=== PATIENT | female | born 1990 | race Caucasian/White ===

== ENCOUNTER 2016-12-03 01:22 | Emergency (ER) | payer OTHER ==
[~2016-12-03] VITALS: Ht 162.6 cm; Wt 55.0 kg
[2016-12-03 01:27] VITALS: Ht 162.6 cm; Wt 55.0 kg
--- NOTE | 2016-12-03 02:46 | ERD ---
ER Documentation Chief Complaint Date/Time DATE: 12/03/16 TIME: 02:42 Chief Complaint bilateral ear pain x 2 days HPI 26-year-old female presents in emergency department for complaints of bilateral ear pain for 2 days, patient feeling clogged on both ears, patient states that she has problems with cerumen. Patient's complaining of pain, throbbing pain, 4/ 10 scale, is accompanied with muffled hearing. Patient denies any trauma there. Patient denies any ear discharge. Patient denies any fever or chills. ROS All systems reviewed and are negative except as per history of present illness. Medications Home Meds Reported Medications [none] Unknown Strength No Conflict Check 12/03/16 Allergies Allergies: Coded Allergies: No Known Allergy (Unverified , 12/03/16) PMhx/Soc Medical and Surgical Hx: pt denies Medical Hx, pt denies Surgical Hx FmHx Family History: No coronary disease, No diabetes, No other Physical Exam Vitals Vital Signs Date Time Temp Pulse Resp B/P Pulse Ox O2 Delivery O2 Flow Rate FiO2 12/03/16 01:27 97.7 84 20 150/90 100 Physical Exam GENERAL: The patient is well developed and appropriate for usual state of health, in no apparent distress. HEENT: Atraumatic. Ears: Bilateral ear canals clogged with cerumen. Normal tympanic membrane, no erythema or bulging. No ear canal swelling. No ear discharge. Nose: normal nasal turbinates, no erythema or swelling. Normal nasal discharge. Throat: oropharynx clear. No tonsillar swelling or tonsillar exudates. No lymphadenopathy. CHEST: Clear to auscultation bilaterally. There are no rales, wheezes or rhonchi. HEART: Regular rate and rhythm. No murmurs, clicks, rubs or gallops. No S3 or S4. ABDOMEN: Soft, nontender and nondistended. Good bowel sounds. No rebound or guarding. No gross peritonitis. No gross organomegaly or masses. No Gutiérrez sign or McBurney point tenderness. BACK: No midline or flank tenderness. EXTREMITIES: Equal pulses bilaterally. There is no peripheral clubbing, cyanosis or edema. No focal swelling or erythema. Full range of motion. Grossly neurovascularly intact. NEURO: Alert and oriented. Cranial nerves 2-12 intact. Motor strength in all 4 extremities with 5/5 strength. Sensation grossly intact. Normal speech and gait. SKIN: There is no apparent rash or petechia. The skin is warm and dry. HEMATOLOGIC AND LYMPHATIC: There is no evidence of excessive bruising or lymphedema. No gross cervical, axillary, or inguinal lymphadenopathy. Results 24 hrs Procedure note: After patient's verbal consent, bilateral ears were lavaged, afterwards, the tympanic membrane was visualized, and symptoms of any otitis media. No foreign body noted in the ear. Procedures/MDM Medical decision making: Patient's symptoms most likely is consistent with bilateral cerumen impaction. No infection noted at this time. Patient will be given Corticosporin otic drops to prevent infection of both ears since patient had an ear lavage done. Patient does not have any symptoms of any foreign body in the ear, nose tympanic membrane perforation noted. No symptoms of otitis media, otitis externa or mastoiditis. Patient appears well and is hemodynamically stable. Patient was advised to avoid using Q-tips to clean the ear. Patient was also given prescription for Debrox. Patient was advised to follow-up with primary doctor in 2-3 days for reevaluation of symptoms. Departure Diagnosis: Primary Impression: Cerumen impaction Laterality: bilateral Qualified Code: H61.23 - Bilateral impacted cerumen Condition: Stable Patient Instructions: Cerumen Impaction, Home Care LEANDRA MATSON NP Dec 03, 2016 02:46
[2016-12-03] MEDS ORDERED: CARB15DR48 BOTH EARS (04:06)
[2016-12-03] MEDS ORDERED: NPH10OT BOTH EARS (04:06)
== END 2016-12-03 04:45 | disposition left against medical advice (07) ==
LOC: FTE 01:22
DX: H61.23 Impacted cerumen, bilateral (principal)
CPT/HCPCS: 69209; Z7502